=== PATIENT | male | born 1955 | race Caucasian/White ===

== ENCOUNTER → 2017-07-22 | Outpatient (CLI) | payer OTHER, SELFPAY | PROVIDERS: PCP Family Medicine; Visit Provider Family Medicine | DX: M25.561 Pain in right knee (principal) | CPT/HCPCS: 73721 ==

== ENCOUNTER 2019-09-25 15:18 | Outpatient (CLI) | payer OTHER, SELFPAY ==
--- NOTE | 2019-09-25 15:27 | XR_ITS ---
PROCEDURE: XR CHEST 2V CLINICAL HISTORY: FLU-LIKE SYMPTOMS COMPARISON: No exams were available for comparison FINDINGS: The cardiomediastinal silhouette and pulmonary vascularity are within normal limits. Patchy right perihilar infiltrate with perihilar bronchial thickening. The remaining lungs are clear. No acute bony abnormalities. IMPRESSION: Right perihilar infiltrate Dictated by: Janak Do MD 09/25/2019 17:16 Electronically signed by Janak Do MD in [place] 09/25/2019 17:16
[2019-09-25 16:00] VITALS: BP 116/67; PULSE 68; RESP 18; TEMP 37.9
[2019-09-25 16:07] VITALS: BMI 30.7
[2019-09-25 16:13] LABS: Adenovirus,PCR Not Detected (NotDetected); Bordetella Pertussis Not Detected (NotDetected); Chlamydophila Pneumoniae, PCR Not Detected (NotDetected); Coronavirus 229E Not Detected (NotDetected); Coronavirus NL63 Not Detected (NotDetected); Coronavirus OC43 Not Detected (NotDetected); Coronovirus HKU1,PCR Not Detected (NotDetected); Human Metapneumovirus Not Detected (NotDetected); Influenza A, PCR Not Detected (NotDetected); Influenza AH1, 2009 Not Detected (NotDetected); Influenza AH1, PCR Not Detected (NotDetected); Influenza AH3,PCR Not Detected (NotDetected); Influenza B, PCR Not Detected (NotDetected); Mycoplasma Pneumoniae, PCR Not Detected (NotDetected); Parainfluenza 1, PCR Not Detected (NotDetected); Parainfluenza 2, PCR Not Detected (NotDetected); Parainfluenza 3, PCR Not Detected (NotDetected); Parainfluenza 4, PCR Not Detected (NotDetected); Respiratory Syncytial Virus Not Detected (NotDetected); Rhinovirus/Enterovirus Not Detected (NotDetected)
[2019-09-25 17:05] VITALS: BP 151/75; PULSE 81; RESP 18
== END 2019-09-25 17:05 | disposition home or self-care (01) ==
LOC: RAD 15:21
PROVIDERS: PCP Family Medicine; Visit Provider Family Medicine
DX: R68.89 Other general symptoms and signs (principal); E86.0 Dehydration
CPT/HCPCS: 71046; 87275; 87276; 87486; 87581; 87633; 87798; 96360

== ENCOUNTER → 2019-10-03 08:16 | Outpatient (CLI) | payer OTHER, SELFPAY ==
--- NOTE | 2019-10-03 08:20 | XR_ITS ---
PROCEDURE: XR CHEST 2V CLINICAL HISTORY: COUGH Cough, low-grade fever, shortness of breath COMPARISON: XR CHEST 2V from 09/25/2019 FINDINGS: The cardiomediastinal silhouette and pulmonary vascularity are within normal limits. The lungs are clear without infiltrates, suspicious nodules, or pleural effusions. No acute bony abnormalities. IMPRESSION: No acute findings. Dictated by: Janak Do MD 10/03/2019 09:22 Electronically signed by Janak Do MD in [place] 10/03/2019 09:22
== END ==
PROVIDERS: PCP Family Medicine; Visit Provider Family Medicine
DX: R05 Cough (principal)
CPT/HCPCS: 71046

== ENCOUNTER → 2023-02-01 10:01 | Outpatient (CLI) | payer MEDICARE, SELFPAY ==
--- NOTE | 2023-02-01 10:12 | XR_ITS ---
FINAL REPORT CLINICAL HISTORY: PAIN IN KNEES FINDINGS: Left knee Two views were obtained. There is no acute fracture or dislocation. There are mild degenerative changes. Mild vascular calcification is identified. There is a moderate joint effusion. Note is made of meniscal calcification. IMPRESSION: Mild degenerative changes and moderate joint effusion. Reviewed, Interpreted and Dictated by Kamaljit Miles III, MD Transcribed by Jessica Copeland Authenticated and . [facility]
--- NOTE | 2023-02-01 10:12 | XR_ITS ---
FINAL REPORT CLINICAL HISTORY: PAIN IN KNEES FINDINGS: Right knee Two views were obtained. There is no acute fracture or dislocation. There are mild degenerative changes. Mild vascular calcification is identified. There is no joint effusion. IMPRESSION: Mild degenerative changes. Reviewed, Interpreted and Dictated by Kamaljit Miles III, MD Transcribed by Jessica Copeland Authenticated and . [facility]
== END ==
PROVIDERS: PCP Family Medicine; Visit Provider Family Medicine
DX: M25.561 Pain in right knee (principal); M25.562 Pain in left knee
CPT/HCPCS: 73560